=== PATIENT | female | born 1990 | race Caucasian/White ===

== ENCOUNTER 2021-11-09 12:08 | Emergency (ER) | payer OTHER ==
[~2021-11-09] VITALS: Ht 170.2 cm; Wt 129.5 kg
[~2021-11-09 12:08] MED LIST: B-12 100 MCG; PERCOCET 325 MG1 TA2 PO; PRENATAL
[2021-11-09 13:46] LABS: BASO # 0.1 K/mm3 (0.0-0.2); BASO % 0.7 % (0.0-2.0); EOS # 0.1 K/mm3 (0.0-0.7); GRAN # 4.5 K/mm3 (1.4-6.5); GRAN % 63.5 % (42.2-75.2); HEMATOCRIT 41.9 % (37.0-47.0); HEMOGLOBIN 13.8 g/dl (12.5-16.0); LYMPH # 1.8 K/mm3 (1.2-3.4); LYMPH % 25.7 % (20.0-51.0); MEAN CELL VOLUME 98 fl (80.0-100.0); MEAN CORPUSCULAR HEMOGLOBIN 32 pg (27-31); MEAN CORPUSCULAR HGB CONC 33 g/dl (33.0-37.0); MEAN PLATELET VOLUME 10.7 fl (7.4-10.4); MONO # 0.6 K/mm3 (0.1-0.6); MONO % 7.8 % (1.7-9.3); PLATELET COUNT 292 K/mm3 (130-400); RED BLOOD COUNT 4.28 M/mm3 (4.10-5.30); REDCELL DISTRIBUTION WIDTH-CV 13.1 % (11.5-14.5)
[2021-11-09 15:43] VITALS: BP 115/68; PULSE 60; TEMP 98
== END 2021-11-09 15:47 | disposition home or self-care (01) ==
LOC: COL.ER 12:08
PROVIDERS: Physician Assistant
DX: O03.4 Incomplete spontaneous abortion without complication (principal); Z86.2 Personal history of diseases of the blood and blood-forming organs and certain disorders involving the immune mechanism
CPT/HCPCS: J7030

== ENCOUNTER 2023-11-26 07:21 | Day surgery (SDC) | payer OTHER ==
[~2023-11-26] VITALS: Ht 170.2 cm; Wt 149.1 kg
[~2023-11-26 07:21] MED LIST changes: +LR 1,000 ML IV ONE; +Ondansetron 4 MG/2 ML VIAL IV PRN
[2023-11-26 08:24] VITALS: BP 138/84; PULSE 62; TEMP 97.1
[2023-11-26] MEDS ORDERED: SYMJEPI0.15 MG/0. IM (08:29)
[2023-11-26] MEDS ORDERED: LEXAPRO20 MG PO (08:30)
[2023-11-26] MEDS ORDERED: IRON TABLETS325 MG PO (08:30)
[2023-11-26] MEDS ORDERED: FLONASEALLERGY NS (08:32)
[2023-11-26] MEDS ORDERED: WELLBUTRIN XL150 MG PO (08:33)
[2023-11-26] MEDS ORDERED: ZYRTEC 10MG10 MG PO (08:33)
[2023-11-26] MEDS ORDERED: VTAMINC250TA PO (08:34)
[2023-11-26] MEDS ORDERED: PRENATAL FORMU1 EAC3 PO (08:36)
[2023-11-26] MEDS ORDERED: PROTONIX 40MG T40 MG PO (08:37)
[2023-11-26] MEDS ORDERED: CARAFATE 1GM1 G PO (08:37)
[2023-11-26 09:40] VITALS: BP 129/78; PULSE 56; TEMP 97.1
[2023-11-26 09:55] VITALS: BP 113/85; PULSE 52
--- NOTE | 2023-11-26 11:21 | NUR ---
0940- Pt returns from procedure on cart. Denies complaints. VSS. Lr infusing to RAC IV without complications. REsting in recliner with feet elevated. Call light within reach. 0955- Discharge instructions reviewed, questions answered. 59- IV site removed, pt dressed without issue 1005- Dr. Salgado in room 1010- Pt discharged to mothers car via w/c. Denies any complaints.
== END 2023-11-26 10:10 | disposition home or self-care (01) ==
LOC: SDCO 07:21
DX: R19.7 Diarrhea, unspecified (principal); K21.9 Gastro-esophageal reflux disease without esophagitis; K92.1 Melena; K22.89 Other specified disease of esophagus; K31.89 Other diseases of stomach and duodenum; K64.0 First degree hemorrhoids; Z98.84 Bariatric surgery status; E11.9 Type 2 diabetes mellitus without complications
CPT/HCPCS: J2704; J7120